=== PATIENT | female | born 1960 | race African-American/Black ===

== ENCOUNTER 2025-05-23 14:08 | Outpatient (AMB) | payer MEDICARE, SELFPAY ==
[2025-05-23 14:23] VITALS: BMI 36.7
--- NOTE | 2025-05-23 14:23 | A.OFFVIS_ITS ---
VS Expanded 05/23/25 14:23 05/23/25 14:25 Height 5 ft 5 in 5 ft 5 in Weight 220 lb 10.923 oz 221 lb BMI 36.7 36.8 Intake Visit Reasons: PRE DM Allergies acetaminophen (From Percocet) Allergy (Intermediate, Verified 05/30/25 14:03) DIZZY oxycodone (From Percocet) Allergy (Intermediate, Verified 05/30/25 14:03) DIZZY Nutrition Presentation Details: Pt presents for MNT for obesity food frequency fruit: 0-2 vegetables: 2-3 x/wk fish: 0-1x/wk dairy : 0-2/d beverages:water /milk /low sugar beverages/juice eating out 0-1/wk physical activity :ADL eoth/smoking--- BAZ-Yenwwkn-Rn.Jeor Equation Height: 5 ft 5 in Weight: 221 lb Resting Metabolic Rate: 1547.59 Calculated Activity Level: Mild Activity Calories Needed to Maintain Weight: 2127.94 Diagnosis Nutrition problem #1: overweight/obesity and food nutri know defi As related to (etiology) #1: diagnosis As evidenced by (sign/symptom) #1: knowledge deficit of diet PFSH Surgical History (Updated 05/30/25 @ 14:07 by Magi Velazquez CMA) Hx of tubal ligation Family History (Updated 05/30/25 @ 14:05 by Magi Velazquez CMA) Mother Hypertension Diabetes Father Hypertension Diabetes Daughter No problems noted. Daughter No problems noted. Social History (Updated 05/30/25 @ 14:05 by Magi Velazquez CMA) Alcohol intake: current Alcohol intake frequency: holidays/special occasions only Patient Tobacco Use Status: Never used Tobacco Assessment & Plan Assessment & Plan (1) Obesity (BMI 30-39.9): Code(s): E66.9 - Obesity, unspecified Category: Medical Plan: Wt: 100 Kg ( 06/10 ) Est kcal needs as per MSJ: 2100 (40% carb, 30% protein/fat) Est fluid needs as per 25-30 ml/d: 3000 Est prot per day as per 1 g/kg bw: 100 Recommend fiber intake : 8-10 g per day and gradually increase to 25-28 g per day for women and 35-38 g for men or as tolerated Recommend sodium intake per day : less than 2300 mg Educated patient on: ( R = reviewed V = verbalizes understanding N/R = needs review N/A = not applicable * Food sources of carbohydrate, adequate serving sizes and its role in various health conditions: R * Differences between complex carbohydrates a simple carbohydrates, role of fibe r in diet: R * Lean protein sources of foods: R * Differences between types of fats and role in diet (mono on saturated fat fatty acids, saturated fatty acids, trans fats): R V N/R * Food sources of sodium in salt and healthy modifications for heart health in kidney health: R V R/V * Vitamins and minerals: R V N/R * Healthy plate method concept: R * Physical activity: Benefits a precaution: R V N/R Patient Instructions: Practice mindful eating Work on reducing sugars and total carb to less than 60 g per meal (3meals/d) and 0-20 g carb as snack (2/day if needed) keep hydrated by having water, herb/fruit flavor infused water Coding Level of Care Code Nutr Indiv Intake (24732) Diagnoses Obesity (BMI 30-39.9) E66.9 Time Spent (min) 30
--- OUTSIDE RECORDS SUMMARY | 2025-05-23 14:34 | XMS_ITS | Data Portability ---
Author Organization [place] - [facility] Address [address] [address] Care Team Providers Care Production Hand Name Role Phone RILEY RODRIGUEZ Primary Care Provider Assessment Encounter Date Assessment Date Assessment LastModified by Organization Details LastModified Time 08/02/2024 08/02/2024 64 year old female presents for routine cerumen removal. Cerumen impaction removed bilaterally. Bilateral TMs are intact with aerated middle ear spaces. Follow up in 2 months for routine debridement, or sooner if needed. [email or web address] Not available 08/02/2024 11:48:19 10/04/2024 10/04/2024 64 year old female presents for routine cerumen removal. Cerumen impaction removed bilaterally. Bilateral TMs are intact with aerated middle ear spaces. Follow up in 2 months for routine debridement, or sooner if needed. 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 She is having recurrent episodes of vertigo. Patient declined Melrose-Hallpike exam today. Referral for vestibular therapy was placed today. Follow-up if symptoms persist or recur. [email or web address] Not available 10/04/2024 12:16:05 12/02/2024 12/02/2024 64yo female with history of BPPV presents for evaluation of the ears. Cerumen impaction removed bilaterally, which patient tolerated well. Otologic exam demonstrated TMs are intact with well-aerated middle ear spaces. Recommend 2-month follow-up for cerumen removal, sooner with issues. [email or web address] Not available 12/02/2024 15:01:45 02/07/2025 02/07/2025 64 year old female presents for routine cerumen removal. Cerumen impaction removed bilaterally. Bilateral TMs are intact with aerated middle ear spaces. Follow up in 2 months for routine debridement, or sooner if needed. [email or web address] Not available 02/07/2025 14:13:13 05/05/2025 05/05/2025 64 year old female presents for routine cerumen removal. Cerumen impaction removed bilaterally. Bilateral TMs are intact with aerated middle ear spaces. Follow up in 2.5 months for routine debridement, or sooner if needed. [email or web address] Not available 05/05/2025 13:27:29 Plan of Treatment Reminders Order Date Submit Date Provider Last Modified By Organization Details Last Modified Time Details Appointments Establish ed 15 2024 01:00P M GEENA JEFFRIES PA-C Not available Not available Not available Establish ed 15 2024 01:00P M GEENA JEFFRIES PA-C Not available Not available Not available Establish ed 15 2024 01:00P M GEENA JEFFRIES PA-C Not available Not available Not available Lab None recorded. Referral vestibula r therapy referral - Urgent referral for bppv. Thank you! 2023 024 [facility] - [address], [place], [address], 10/05/2024 11:20:35 Procedures None recorded. Surgeries None recorded. Imaging None recorded. Medication Orders None recorded. Patient TargetsNo targets recorded. Patient InstructionsNo instructions recorded. Reason for Referral Vestibular Therapy Referral for Benign paroxysmal positional vertigo Urgent referral for bppv. Thank you! Referring Physician: Geena Jeffries, Otolaryngology, Encounter Date: 10/04/2024 Results Created Date Observation Date Name Description Value Unit Range Abnormal Flag Note LastModifiedBy Organization Detail LastModifiedTime 07/07/20 24 02/06/2022 imagi ng/di agnos tic resul t No observ ation record ed. [email or web address] Not Available 02:51:02 07/07/2005/09/2021 imagi ng/di agnos tic resul t No observ ation record ed. [email or web address] Not Available 02:51:15 07/07/20 24 05/09/2021 imagi ng/di agnos tic resul t No observ ation record ed. [email or web address] Not Available 02:51:18 07/07/20 24 09/16/2022 imagi ng/di agnos tic resul t No observ ation record ed. [email or web address] Not Available 02:51:54 07/07/20 24 09/18/2020 imagi ng/di agnos tic resul t No observ ation record ed. [email or web address] Not Available 02:52:03 07/07/20 24 02/06/2022 audio gram No observ ation record ed. [email or web address] Not Available 02:53:45 07/07/20 24 05/09/2021 audio gram No observ ation record ed. [email or web address] Not Available 02:54:05 07/07/20 24 09/18/2020 audio gram No observ ation record ed. [email or web address] Not Available 02:54:52 Result Notes None recorded. 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 Completed 201406/18/2024 Other diseases of respirat ory system: Corporate Investigator al complica tion of tracheos edda; [facility] Treatmen t: establis hed problem (to examiner ): stable or improved Note: Date Diagnose d: 09/30/20 14 1:09 PM (519.02) Other diseases of respirat ory system: Corporate Investigator al complica tion of tracheos edda; CMS Treatmen t: establis hed problem (to examiner ): stable or improved Note: Date Diagnose d: 09/30/20 14 1:09 PM (519.02) ; Start Date : 12/02/19 15 Other diseases of respirat ory system: Corporate Investigator al complica tion of tracheos edda; CMS Risk: minimal risk CMS Treatmen t: establis hed problem (to examiner ): stable or improved Note: Date Diagnose d: 09/30/20 14 1:09 PM (519.02) ; Start Date : 11/02/20 14 Other diseases of respirat ory system: Corporate Investigator al complica tion of tracheos edda; CMS Risk: low risk CMS Treatmen t: establis hed problem (to examiner ): stable or improved Conditi on: improved Note: Date Diagnose d: 09/30/20 14 1:09 PM (519.02) ; Start Date : 10/05/20 14 Other diseases of respirat ory system: Corporate Investigator al complica tion of tracheos edda; CMS Risk: low risk CMS Treatmen t: new problem (to examiner ): no addition al workup planned Conditio n: controll ed Note: Date Diagnose d: 09/30/20 14 1:09 PM (519.02) ; Start Date : 09/30/20 14 Not Available [facility] 4 03:04:19 Pain of right temporom andibula r joint 55980280199 630448 Active 2018 Arthralg ia of right temporom andibula r joint; Note: Date Diagnose d: 9 11:10 AM (M26.621 ) Not Available [facility] 4 03:04:20 Nasal congesti on 48133112 Active 2020 Nasal congesti on; Note: Date Diagnose d: 1 11:05 AM (R09.81) Not Available [facility] 4 03:04:19 Sensorin eural hearing loss of bilatera l ears 654974289 Active 2019 Sensorin eural hearing loss, bilatera l; Note: Date Diagnose d: 0 12:45 PM (H90.3) Not Available [facility] 4 03:04:17 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 ; CMS Treatmen t: establis hed problem (to examiner ): stable or improved Note: Date Diagnose d: 09/30/20 14 1:09 PM (357.0) 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 ; CMS Risk: low risk CMS Treatmen t: new problem (to examiner ): no addition al workup planned Conditio n: controll ed Note: Date Diagnose d: 09/30/20 14 1:09 PM (357.0) ; Start Date : 09/30/20 Not Available [facility] 4 03:04:19 Diffuse otitis externa 41523666 Completed 202006/18/2024 Diffuse otitis externa, right ear; Note: Date Diagnose d: 04/23/2021 4:47 PM (H60.311 ) Not Available [facility] 4 03:04:17 Atypical facial pain 72413746 Active 2020 Atypical facial pain; Note: Date Diagnose d: 04/23/2021 4:47 PM (G50.1) Not Available [facility] 4 03:04:18 Bilatera l tinnitus 26807588340 02 Active 2019 Tinnitus , bilatera l; Note: Date Diagnose d: 0 11:38 AM (H93.13) Not Available [facility] 4 03:04:19 Stridor 93239018 Active 2014 Stridor; Note: Date Diagnose d: 5 3:01 PM (786.1) Strido r; Note: Date Diagnose d: 5 3:01 PM (R06.1) Not Available [facility] 4 03:04:18 Tinnitus of right ear 38587488924 08 Active 2019 Tinnitus , right ear; Note: Date Diagnose d: 0 12:45 PM (H93.11) Not Available [facility] 4 03:04:20 Otalgia of right ear 7512528357 Active 2020 Otalgia, right ear; Note: Date Diagnose d: 04/23/2021 4:47 PM (H92.01) Not Available [facility] 4 03:04:17 Allergic rhinitis 82916812 Active 2020 Other allergic rhinitis ; Note: Date Diagnose d: 1 11:05 AM (J30.89) Not Available [facility] 4 03:04:18 Impacted cerumen of bilatera l ears 14257550067 39591 Active 2021 Impacted cerumen, bilatera l; Note: Date Diagnose d: 2 12:46 PM (H61.23) Not Available [facility] 4 03:04:19 Dizzines s and giddines s 303293670 Active 2020 Dizzines s and giddines s; Note: Date Diagnose d: 1 12:29 PM (R42) Not Available [facility] 4 03:04:18 Benign paroxysm al position al vertigo 862742523 Active 2023 GEENA JEFFRIES PA-C [address] [place] [address],[address] [place], [address] , [place] - [facility] [place] 4 12:14:47 Problem Notes None recorded. Procedures Surgical History Date Name Laterality Status Provider Name and Address Organization Details Recorded Time 5 Cerumen removal without microscope bilat completed GEENA JEFFRIES PA-C [address] [place] [address],[address], [address], [facility] 05/05/2025 13:05:25 5 Cerumen removal without microscope bilat completed GEENA JEFFRIES PA-C [address] [place] [address],[address], [address], [facility] - [facility] [place] 02/07/2025 14:12:57 5 Cerumen removal without microscope bilat completed RAMIREZ PABLO PA-C [address] [place] [address],[address], [address], [place] - [facility] [place] 12/02/2024 15:02:20 4 Cerumen removal without microscope bilat completed GEENA JEFFRIES PA-C 100 [facility],[address], [address], [place] [facility] [place] 10/04/2024 12:16:31 4 Cerumen removal without microscope bilat completed GEENA JEFFRIES PA-C 100 [facility],[address], [address], [place] - [facility] [place] 08/02/2024 11:25:02 4 Cerumen removal without microscope bilat completed GEENA JEFFRIES PA-C 100 [facility],[address], [address], [place] - [facility] [place] 05/31/2024 11:50:39 4 Cerumen removal without microscope bilat completed GEENA JEFFRIES PA-C 100 [facility],[address], [address], [place] - [facility] [place] 04/05/2024 12:16:28 Imaging Results None recorded. Procedure Notes None recorded. Medical Equipment None Reported. Allergies No known drug allergies Medications Name Sig Start Date Stop Date Status Note LastModified by Organization Details LastModified Time losartan 50 mg tablet TAKE 1 TABLET BY MOUTH 1 TIME EACH DAY. active Not Available Not Available No t Available terconazo le 0.4 % vaginal cream INSERT 1 APPLICAT ORFUL VAGINALL Y AT BEDTIME FOR 7 NIGHTS 04/05 completed Not Available Not Available Not Available albuterol sulfate 2.5 mg/3 mL (0.083 %) solution for nebulizat ion PLEASE SEE ATTACHED FOR DETAILED DIRECTIO NS active Not Available Not Available No t Available cetirizin e 10 mg tablet 05/09 completed Medicati on ID: [id number] D uration Value: 30 Brand Name: cetirizi ne Send Method: E-Prescr ibed Sub s Allowed: subs OK Speci al Instruct ion: TAKE 1 TAB BY MOUTH AT BEDTIME* * FEXOFENA DINE WAS INEFFECT JACKELNIE N/C* M edicatio nGeneric Name: cetirizi ne Not Available Not Available Not Available Stool Softener 100 mg capsule 05/09 completed Medicati on ID: [id number] Du ration Value: 30 Brand Name: Stool Softener Send Method: E-Prescr ibed Sub s Allowed: subs OK Speci al Instruct ion: TAKE 1 CAP BY MOUTH 2 TIMES DAILY. M ari Carlsoneneric Name: Stool Softener Not Available Not Available Not Available prednison e 20 mg tablet 04/05 completed Medicati on ID: [id number] B rand Name: predniso ne Send Method: E-Prescr ibed Sub s Allowed: subs OK Medic ationGen ericName : predniso ne Medic ation ID: [id number] B rand Name: predniso ne Send Method: E-Prescr ibed Sub s Allowed: subs OK Medic ationGen ericName : predniso ne Not Available Not Available Not Available sertralin e 100 mg tablet 05/09 completed Medicati on ID: [id number] B rand Name: sertrali ne Send Method: E-Prescr ibed Sub s Allowed: subs OK Medic ationGen ericName : sertrali ne Not Available Not Available Not Available prednison e 5 mg tablet 05/09 completed Medicati on ID: [id number] Du ration Value: 30 Brand Name: predniso ne Send Method: E-Prescr ibed Sub s Allowed: subs OK Speci al Instruct ion: TAKE 1 TABLET BY MOUTH EVERY DAY Medi cationGe nericNam e: predniso ne Not Available Not Available Not Available permethri n 5 % topical cream PLEASE SEE ATTACHED FOR DETAILED DIRECTIO NS 12/02 completed Not Available Not Available Not Available meclizine 12.5 mg tablet TAKE 2 TABLETS BY MOUTH 3 TIMES A DAY FOR 30 DAYS 04/05 completed Not Available Not Available Not Available aspirin 81 mg tablet,de layed release TAKE 1 TABLET BY MOUTH EVERY DAY active Not Available Not Available No t Available amoxicill in 500 mg tablet TAKE 1 TABLET BY MOUTH TWICE A DAY 04/05 completed Not Available Not Available Not Available pantopraz ole 20 mg tablet,de layed release 05/09 completed Medicati on ID: [id number] Du ration Value: 30 Brand Name: pantopra zole Sen d Method: E-Prescr ibed Sub s Allowed: subs OK Speci al Instruct ion: TAKE 1 TAB BY MOUTH DAILY. M ari Vizcarraic Name: pantopra zole Not Available Not Available Not Available alprazola m 0.5 mg tablet 05/09 completed Medicati on ID: [id number] Du ration Value: 10 Brand Name: alprazol am Send Method: E-Prescr ibed Sub s Allowed: subs OK Speci al Instruct ion: TAKE 1 TABLET BY MOUTH 3 TIMES A DAY NEEDED FOR ANXIETY Medicati onGeneri cName: alprazol am Not Available Not Available Not Available hydromorp miguel 2 mg tablet 05/09 completed Medicati on ID: [id number] Du ration Value: 5 Brand Name: hydromor phone Se nd Method: E-Prescr ibed Sub s Allowed: subs OK Speci al Instruct ion: TAKE 1 TABLET BY MOUTH EVERY 6 HOURS NEEDED FOR PAIN Med icationG enericNa me: hydromor phone Not Available Not Available Not Available famotidin e 20 mg tablet 05/09 completed Medicati on ID: [id number] B rand Name: famotidi ne Send Method: E-Prescr ibed Sub s Allowed: subs OK Medic ationGen ericName : famotidi ne Not Available Not Available Not Available triamcino lone acetonide 0.025 % topical cream APPLY 1 G TOPICALL Y 2 TIMES DAILY FOR 7 DAYS. 12/02 completed Not Available Not Available Not Available meclizine 25 mg tablet TAKE 1 TABLET BY MOUTH 3 TIMES DAILY NEEDED active Not Available Not Available No t Available amlodipin e 10 mg tablet TAKE 1 TABLET BY MOUTH 1 TIME EACH DAY. active Not Available Not Available No t Available Gas Relief (simethic one) 80 mg chewable tablet 05/09 completed Medicati on ID: [id number] Du ration Value: 30 Brand Name: Gas Relief (simethi cone) Se nd Method: E-Prescr ibed Sub s Allowed: subs OK Speci al Instruct ion: CHEW 1 TABLET BY MOUTH 3 TIMES A DAY NEEDED FOR FLATULEN CE Medic ationGen ericName : Gas Relief (simethi cone) Not Available Not Available Not Available clotrimaz ole 1 % topical solution 05/31 completed Medicati on ID: [id number] B rand Name: clotrima zole Sen d Method: E-Prescr ibed Sub s Allowed: subs OK Medic ationGen ericName : clotrima zole Med ication ID: [id number] B rand Name: clotrima zole Sen d Method: E-Prescr ibed Sub s Allowed: subs OK Medic ationGen ericName : clotrima zole Not Available Not Available Not Available omeprazol e 20 mg capsule,d elayed release TAKE 1 CAPSULE BY MOUTH EVERY DAY active Not Available Not Available No t Available hydroxyzi ne HCl 25 mg tablet TAKE 1 TABLET BY MOUTH TWICE A DAY NEEDED FOR ITCHING active Not Available Not Available No t Available mometason e 0.1 % topical ointment 05/31 completed Medicati on ID: [id number] B rand Name: mometaso ne Send Method: E-Prescr ibed Sub s Allowed: subs OK Medic ationGen ericName : mometaso ne Medic ation ID: [id number] B rand Name: mometaso ne Send Method: E-Prescr ibed Sub s Allowed: subs OK Medic ationGen ericName : mometaso ne Not Available Not Available Not Available gabapenti n 100 mg capsule 05/09 completed Medicati on ID: [id number] Du ration Value: 30 Brand Name: gabapent in Send Method: E-Prescr ibed Sub s Allowed: subs OK Speci al Instruct ion: TAKE 3 CAPSULES BY MOUTH 3 TIMES A DAY Medi cationGe nericNam e: gabapent in Not Available Not Available Not Available methylpre dnisolone 4 mg tablets in a dose pack TAKE 6 TABLETS ON DAY 1 DIRECTED ON PACKAGE AND DECREASE BY 1 TAB EACH DAY FOR A TOTAL OF 6 DAYS active Not Available Not Available No t Available fluticaso ne propionat e 50 mcg/actua tion nasal spray,libra pension USE 1 SPRAY IN EACH NOSTRIL TWICE A DAY active Not Available Not Available No t Available sertralin e 50 mg tablet TAKE 1 TABLET BY MOUTH EVERY DAY active Not Available Not Available No t Available ipratropi um bromide 21 mcg (0.03 %) nasal spray USE 2 SPRAYS IN EACH NOSTRIL 3 TIMES A DAY active Not Available Not Available No t Available loratadin e 10 mg tablet 05/09 completed Medicati on ID: [id number] D uration Value: 30 Brand Name: naren langston Send Method: E-Prescr ibed Sub s Allowed: subs OK Speci al Instruct ion: TAKE 1 TABLET BY MOUTH EVERY DAY NC BY INS OT Medi cationGe nericJuliano e: naren langston Not Available Not Available Not Available neomycin- polymyxin -hydrocor t 3.5 mg-10,000 unit/mL-1 % ear drops,libra p PLEASE SEE ATTACHED FOR DETAILED DIRECTIO NS 04/05 completed Not Available Not Available Not Available Laxative (bisacody l) 5 mg tablet,de layed release TAKE 2 TABLETS BY MOUTH RIGHT BEFORE BEGINNIN G BOWEL PREP. SEE INSTRUCT IONS PROVIDED BY THE OFFICE active Not Available Not Available No t Available cyclobenz aprine 5 mg tablet TAKE 1 TABLET BY MOUTH AT BEDTIME NEEDED FOR MUSCLE SPASMS. active Not Available Not Available No t Available GaviLyte- G 236 gram-22.7 4 gram-6.74 gram-5.86 gram oral solution PLEASE SEE ATTACHED FOR DETAILED DIRECTIO NS active Not Available Not Available No t Available Breo Ellipta 100 mcg-25 mcg/dose powder for inhalatio n TAKE 1 PUFF BY MOUTH EVERY DAY active Not Available Not Available No t Available Vitals Date Recorded Body height Body mass index (BMI) Body weight Provider Name and Address Organization Details Last Updated DateTime 12/02/2024 165.1 cm 38.3 kg/m2 004768.25 g Mary Alfred [place] [facility] 12/02/2024 14:35:47 Date Recorded Body height Body mass index (BMI) Body weight Provider Name and Address Organization Details Last Updated DateTime 02/07/2025 165.1 cm 38.3 kg/m2 045886.25 g Ani Fontaine [place] [facility] 02/07/2025 13:36:02 Date Recorded Body height Body mass index (BMI) Body weight Provider Name and Address Organization Details Last Updated DateTime 05/05/2025 165.1 cm 38.3 kg/m2 234383.25 g Ani Fontaine [place] - [facility] 05/05/2025 13:09:52 Date Recorded Body height Body mass index (BMI) Body weight Provider Name and Address Organization Details Last Updated DateTime 08/02/2024 165.1 cm 34.9 kg/m2 68486.4 g Ani Fontaine [place] [facility] 08/02/2024 11:36:08 Date Recorded Body height Body mass index (BMI) Body weight Provider Name and Address Organization Details Last Updated DateTime 10/04/2024 165.1 cm 34.9 kg/m2 99599.4 g Ani Fontaine [facility] 10/04/2024 11:48:04 Social History None recorded. Functional Status None recorded. Mental Status None recorded. Family History Nothing Reported. Medical History Condition Response Sleep Disorder Y Hypertension Y Gynecological HistoryNo gynecological history recorded. Obstetrics History GPAL:G 0 P 0 0 0 0 Past Encounters Encounter ID Performer Location Encounter Start Date Encounter Closed Date Diagnosis/Indication Diagnosis SNOMED-CT Code Diagnosis ICD10 Code Diagnosis Note [id number] GEENA JEFFRIES PA-C [facility] [address] [address] 04/05/2024 11:44:48 04/05/2024 12:48:29 Impacted cerumen of bilateral ears [id number] 174212 H61.23 [id number] GEENA JEFFRIES PA-C [facility] [address] [address] 05/31/2024 11:46:14 05/31/2024 12:00:15 Impacted cerumen of bilateral ears 3262162775 021472 H61.23 [id number] GEENA JEFFRIES PA-C [facility] [address] [address] 08/02/2024 11:19:50 08/02/2024 11:48:46 Impacted cerumen of bilateral ears 1804198591 649919 H61.23 [id number] GEENA JEFFRIES PA-C [facility] [address] [address] 10/04/2024 11:41:46 10/04/2024 12:05:47 Impacted cerumen of bilateral ears 8225653225 022937 H61.23 Benign par oxysmal positional vertigo 719175295 H81.10 [id number] RAMIREZ PABLO PA-C [facility] [address] [place] [address] 12/02/2024 14:20:29 12/02/2024 15:04:25 Impacted cerumen of bilateral ears 8978337835 272749 H61.23 [id number] GEENA JEFFRIES PA-C [facility] [address] [place] [address] 02/07/2025 13:25:22 02/07/2025 14:08:18 Impacted cerumen of bilateral ears 9830097532 048232 H61.23 [id number] GEENA JEFFRIES PA-C [facility] [address] [place] [address] 05/05/2025 13:02:58 05/05/2025 13:32:19 Impacted cerumen of bilateral ears 9951627389 198918 H61.23 Health Concerns Section Related Observation LastModified by Organization Detai ls LastModified Time None Recorded Concern Status LastModified by Organization Details LastModified Time None Recorded Advance Directives Directive None Recorded Payers Insurance Date Sequence Insurance Name Policy Number Policy Gomez Covered Member ID Gomez Member ID Guarantor Name 05/05/2025 1 [employer] [id number] Elena Madrigaltenkadi [id number] Elena Rojas 09/23/2024 2 MEDICARE [place]: [employer] Elena Rojas [id number] Elena Fullerdler Crystal 09/23/2024 1 [place] [employer] Elena Keaner Crystal [id number] Elena Rojas Notes Date Note Type Note Provider Name and Address Organization Details Recorded Time 08/02/2024 text/html 64 year old rossy hendrickson presents for routine cerumen removal. No concerns today. ALEJANDRINA ANTONIO MD [address] [place] [address], [address], [facility] - [facility] 08/02/2024 12:28:57 10/04/2024 text/html 64 year old rossy hendrickson presents for routine cerumen removal. Denies otalgia, otorrhea, or changes in her hearing. She reports for the past 2 months, she has been having intermittent episodes of room spinning dizziness lasting a few seconds. Was given Meclizine by her PCP and the ER. History of BPPV treated with vestibular therapy in the past. Symptoms are trigger with movements of her head. OLI JUSTICE MD [address] [facility] [place],[address], [address], [facility] - [facility] 10/04/2024 13:04:00 12/02/2024 text/html 64yo female with history of BPPV presents for evaluation of the ears. Reports right ear feels blocked. Denies otalgia, otorrhea, change in tinnitus, or Qtip use. ARIANNE WELLINGTON MD 100 [facility] [place],[address], [address], [facility] - [facility] 12/03/2024 08:00:44 02/07/2025 text/html 64 year old rossy hendrickson presents for routine cerumen removal. Denies otalgia, otorrhea, or changes in her hearing. AXEL SANCHEZ MD 100 [facility],[place] [address], [place], [address], [facility] - [facility] 02/09/2025 08:21:34 05/05/2025 text/html 64 year old rossy hendrickson presents for routine cerumen removal. Denies otalgia, otorrhea, or changes in her hearing. BERTHA MOYA MD [address] [facility] [place],[facility], [place], [address], [facility] - [facility] 05/06/2025 09:43:06 OBGyn Episode No OBEpisode recorded.
--- OUTSIDE RECORDS SUMMARY | 2025-05-23 14:34 | XMS_ITS | Clinical Summary ---
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 Name Role Phone Derrick Jackson MD Primary Care Provider [phone] Allergies Active Allergy Reactions Criticality Noted Date Comments Atorvastatin Unknown 10/29/2013 poor memory from simvastatin & atrovastatin Heparin Bleeding 07/21/2014 Other Reaction(s): excessive bleeding Influenza Virus Vaccines 07/21/2014 History of Guillain-Feura Bush Syndrome Naproxen Headache 09/20/2015 Other Reaction(s): dizzy feeling Oxycodone-Acetaminophen 08/22/2005 Other Reaction(s): syncope episode Propofol 12/31/2024 Other Reaction(s): severe post op vomitting Medications fluticasone propionate (FLONASE) 50 mcg/actuation nasal sprayIndicatio ns:Other seasonal allergic rhinitis SPRAY 2 SPRAYS BY NASAL ROUTE DAILY. 48 mL 1 09/27/20 24 Active fluticasone furoate-vilant Billy (BREO ELLIPTA) 100-25 mcg/dose inhaler Sig - Route: Inhale 100 mg into the lungs daily. - Inhalation Active albuterol HFA (PROVENTIL HFA;VENTOLIN HFA) 108 (90 Base) MCG/ACT inhaler Sig - Route: Inhale 2 Puffs into the lungs 4 times daily as needed for Cough or Wheezing. - Inhalation Active multivit-min/v it C/herb no.124 (AIRBORNE, ASCORBIC ACID, ORAL) Sig - Route: Take by mouth daily. - Oral Active calcium carbonate/shea min D3 (CALCIUM + D ORAL) Take by mouth daily. Active amLODIPine (NORVASC) 10 mg tablet Take 1 tablet (10 mg total) by mouth 1 (one) time each day. 90 tablet 1 12/31/19 25 Active losartan (COZAAR) 50 mg tablet Take 1 tablet (50 mg total) by mouth 1 (one) time each day. 90 tablet 1 12/31/19 25 Active albuterol 2.5 mg /3 mL (0.083 %) nebulizer solutionIndica tions:Persiste nt asthma without complication, unspecified asthma severity TAKE 3 ML (2.5 MG TOTAL) BY NEBULIZATION EVERY 8 (EIGHT) HOURS IF NEEDED FOR WHEEZING. SIG - ROUTE: TAKE 1 VIAL BY NEBULIZATION EVERY 4 HOURS NEEDED FOR WHEEZING. - NEBULIZATION 75 mL 1 01/03/20 25 Active Breo Ellipta 100-25 mcg/dose inhaler INHALE 1 PUFF INTO THE LUNGS DAILY 180 each 1 02/05/20 25 Active aspirin 81 mg EC tablet TAKE 1 TABLET BY MOUTH EVERY DAY 90 tablet 1 03/21/20 25 Active sertraline (ZOLOFT) 50 mg tablet TAKE 1 TABLET BY MOUTH EVERY DAY 90 tablet 1 03/21/20 25 Active meclizine (ANTIVERT) 25 mg tablet Take 1 tablet (25 mg total) by mouth 3 (three) times a day if needed for dizziness or nausea. 30 tablet 1 03/24/20 25 Active hydrOXYzine HCL (ATARAX) 25 mg tabletIndicati ons:Other seasonal allergic rhinitis TAKE 1 TABLET BY MOUTH TWICE A DAY NEEDED FOR ITCHING 180 tablet 1 04/12/20 25 Active cyclobenzaprin e (FLEXERIL) 5 mg tablet TAKE 1 TABLET BY MOUTH AT BEDTIME NEEDED FOR MUSCLE SPASMS. 30 tablet 05/02/20 25 Active cyclobenzaprin e (FLEXERIL) 5 mg tablet Take 1 tablet (5 mg total) by mouth at bedtime as needed for muscle spasms. 30 tablet 04/04/20 25 025 Discontinued Active Problems Problem Noted Date Diagnosed Date Hypoventilation 12/30/2024 Severe obesity (BMI 35.0-39. 9) with comorbidity (CMS/HCC V24, CMS/HCC V28) 12/30/2024 Disorder 12/30/2024 Overview (12/30/2024): Obstructive sleep apnea mild AHI 12 with nocturnal hypoxia Gastroesophageal reflux disease 10/27/2023 Prediabetes 03/24/2023 History of COVID-19 10/31/2022 Overview (12/30/2024): Home test Disease due to severe acute respiratory syndrome coronavirus 2 (SARS-CoV-2) 04/08/2022 Overview (12/30/2024): Problem added by Discern Expert Vertigo 04/06/2021 Generalized anxiety disorder 03/12/2021 Obesity (BMI 30.0-34.9) 03/12/2021 Obstructive sleep apnea 04/21/2019 Overview (12/30/2024): [facility] Polysomnogram: Date 04/02/2019; Wt 196#; BMI 33; AHI 13, Central apneas 0; Obstructive apneas 8; Mixed apneas 0; hypopneas 60; average oxygen saturation 92% (lowest 82%); with sats <88% for 46.6 minutes of study. ARMD (age-related macular degeneration), bilater al 11/02/2018 Nuclear sclerosis of both eyes 11/02/2018 Asthma 03/17/2017 Overview (12/30/2024): Follows with [facility] pulmonology Normal PFTs December 2016 Hyperparathyroidism (CMS/HCC V24) 03/09/2014 Subacute thyroiditis 03/09/2014 Hyperlipidemia 04/08/2007 Allergic rhinitis 04/03/2007 HTN (hypertension) 08/22/2005 Encounters Date Type Department Care Team Description 04/06/2025 Telephone Internal [facility] [address] [place] [address] Derrick Jackson MD NEW DIAG CODE NEEDED 04/04/2025 3:30 PM EDT Office Visit [facility] - [facility] [address] [place] [phone] Derrick Jackson MD Adult general medical examination (Primary Dx); Screening for deficiency anemia; Screening for hyperlipidemia; Screening for diabetes mellitus; Screening for thyroid disorder; Screening for osteoporosis 03/28/2025 8:32 AM EDT Anesthesia Event [facility] Endoscopy [address] [place] [phone] Tyler Riley DO Chang, Ling, CRNA 03/28/2025 7:55 AM EDT - 03/28/2025 11:59 PM EDT Hospital Encounter [facility] [address] [place] [phone] Shaheen Nur MD Chang, Ling, CRNA Korobkov, Vitaliy, DO Hx of colonic polyps Discharge Disposition: Home or Self Care 03/15/2025 Telephone Gastroenterology - [address] [facility] [address] [phone] [place], [place] 03/07/2025 6:00 PM EDT - 03/07/2025 11:59 PM EDT Hospital Encounter Radiology Department - [address] [phone] Encounter for screening mammogram for breast cancer Discharge Disposition: Home or Self Care from Last 3 Months Immunizations Name Administration Dates Next Due Hepatitis A Adult (Havrix; V aqta) 19yo and older 12/04/2009,05/22/2009 Hepatitis B (Touqbzb-N-Avrpf , Recombivax HB-Adult) 19yo and older 12/04/2009,06/22/2009,05/22/2009 Influenza trivalent, 0.5mL, preservative free (Fluarix; FluLaval; Fluzone) ages 6mo and older (Afluria) 3 years and older 11/06/2012 Influenza trivalent, with pr eservative (Fluzone; Afluria) 6mo and older 08/07/2018 Measles 02/09/2010 Mumps 02/09/2010 PPD Test 02/09/2010,10/31/1996 Pneumococcal polysaccharide 23 valent (Pneumovax 23) 2yo and older 06/29/2019,06/01/2014 Rubella 02/09/2010 Td Tetanus diptheria (Tdvax) 7yo and older 06/24,10/31/1996 Tdap Tetanus diptheria acell ular pertussis (Boostrix; Adacel) 7yo and older 01/25/2013 Varicella live (Varivax) 12mo and older 02/10/20 10 Surgical History Surgery Date Site/Laterality Comments COLONOSCOPY 01/30/2009 PROCEDURE: HISTORICAL COLONOSCOPY; COMMENT: normal; repeat in ten years TUBAL LIGATION PROCEDURE: HISTORICAL TUBAL LIGATION WISDOM TOOTH EXTRACTION PROCEDURE: HISTORICAL WISDOM TEETH EXTRACTION OTHER SURGICAL HISTORY for DVT PROCEDURE: X-RAY FOR PLACEMENT OF VEIN FILTER; COMMENT: Removed 09/20/14 at [facility] OTHER SURGICAL HISTORY trached 06/03/14 PROCEDURE: TRACHEOSTOMY OR LARNGECTOMY; COMMENT: removed 09/29/14 COLONOSCOPY 2020 PROCEDURE: HISTORICAL COLONOSCOPY; COMMENT: rpt 5 years Medical History Medical History Date Comments Allergic rhinitis due to oth er allergen DX:Allergic rhinitis due to other allergen; COMMENT: dust and pollen Allergic rhinitis, cause unspecified 04/03/2007 DX:Allergic rhinitis, cause unspecified Other and unspecified hyperlipidemia 04/08/2007 DX:Other and unspecified hyperlipidemia Essential hypertension, benign 08/22/2005 D X:Essential hypertension, benign Subacute thyroiditis 03/09/2014 DX:Subacute thyroiditis 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 Asthma 03/17/2017 DX:Asthma Gastroesophageal reflux disease 10/27/2023 DX:Gastroesophageal reflux disease ARMD (age-related macular degeneration), bilateral 11/02/2018 Family History Medical History Relation Name Comments No Known Problems Aunt Other: Other Brother x4 1 was killed Thyroid disease Daughter x2 Dementia Father Hypertension Father Prostate cancer Father No Known Problems Maternal Grandfather No Known Problems Maternal Grandmother Diabetes Mother Hypertension Mother Other: heart disease Mother No Known Problems Other No Known Problems Paternal Grandfather Blindness Paternal Grandmother No Known Problems Sister No Known Problems Uncle Breast cancer Neg Hx Cataracts Neg Hx Colon cancer Neg Hx Glaucoma Neg Hx Macular degeneration Neg Hx Ovarian cancer Neg Hx Strabismus Neg Hx Relation Name Status Comments Aunt Brother x4 1 Alive x3, all health y Daughter x2 Alive Father HTN, 84 as of Maternal Grandfather Maternal Grandmother Mother Alive knee arthritis Other Paternal Grandfather Paternal Grandmother Sister Alive healthy Uncle Social History Tobacco Use Types Packs/Day Years Used Date Smoking Tobacco: Never Smokeless Tobacco: Never Tobacco Cessation:Counseling Given: Not Answered Alcohol Use Standard Drinks/Week Comments No 0 (1 standard drink = 0.6 oz pur e alcohol) Interpersonal Safety Answer Date Record ed Physical Abuse 03/28/2025 Verbal Abuse 03/28/2025 Comments No Sex and Gender Information Value Date Recorded Sex Assigned at Female 04/06/2025 12:48 PM EDT Legal Sex Female 4:55 PM EST Gender Identity Female 04/06/2025 12:48 PM EDT Sexual Orientation Straight 04/06/2025 12 :48 PM EDT Obstetrics History Para Term AB IAB SAB Ectopic Multiple Livin g Live Births 2 2 2 2 Date Outcome GA Total Labor Labor/2nd/3rd Weight Sex Type Anes PTL Yara A1 A5 Name Clin Term Term Last Filed Vital Signs Vital Sign Reading Time Taken Comments Blood Pressure 122/70 04/04/2025 3:42 PM EDT Pulse 74 04/04/2025 3:42 PM EDT Temperature 36.2 C (97.2 F) 03/28/2025 8:20 AM EDT Respiratory Rate 18 03/28/2025 9:09 AM EDT Oxygen Saturation 100% 03/28/2025 9:09 AM EDT Inhaled Oxygen Concentration - - Weight 97.5 kg (215 lb) 04/04/2025 3:42 PM EDT Height 165.1 cm (5' 5 ) 04/04/2025 3:42 PM EDT Body Mass Index 35.78 04/04/2025 3:42 PM EDT Plan of Treatment Upcoming Encounters Date Type Department Care Team (Late st Contact Info) Description 10/10/2025 1:00 PM EST Office Visit Internal Medicine - [address] [phone] Derrick Jackson MD [address] [place] [phone] 11/21/2025 2:00 PM EST Appointment [facility] Density [address] [place] [phone] 03/13/2026 4:50 PM EDT Appointment Radiology Department - [address] [phone] Health Maintenance Due Date Last Done Comments Zoster Vaccines (1 of 2) 04/06/2010 02/09/2010 RSV Immunization Adult Patients (1 - Risk 60-74 years 1-dose series) 2018 Pneumococcal Vaccine: 50+ Years (2 of 2 - PCV) 06/29/2020 06/29/2019, 06/01/2014 Social Influencers of Health Screening 10/26/2022 DTaP,Tdap,and Td Vaccines (4 - Td or Tdap) 01/25/2023 01/25/2013, 06/24/2006, 10/31/1996 COVID-19 Vaccine ( - season) 2024 11/03/2021, 04/04/2021, 03/14/2021 Depression Screening 02/15/2025 02/16/2024 Influenza Vaccine (#1) 2025 08/07/2018, 2011 Falls Risk Assessment 03/28/2026 03/28/2025 Hypertension/CHF/CAD Annual BMP Blood Test 04/04/2026 04/04/2025, 12/31/2024, 03/23/2024, Additional history exists Breast Cancer Screening 03/07/2027 03/07/20, 02/23/2024, 02/15/2023, Additional history exists Colorectal Cancer Screening: Colonoscopy 03/28/2030 03/28/2025, 01/12/2020 Cholesterol Screening (Lipid Panel) 04/04/2030 04/04/2025, 12/31/2024, 01/12/2024 Osteoporosis Screening (Bone Density Screening) 11/03/2033 11/03/2023 Hepatitis A Vaccines Aged Out 12/04/2009, 05/22/20 09 No longer eligible based on patient's age to complete this topic Hepatitis B Vaccines Completed 12/04/2009, 06/22/2009, 05/22/2009 Varicella Vaccines Aged Out 02/09/2010 No longer eligible based on patient's age to complete this topic Hepatitis C Screening Completed 01/12/2024 HIB Vaccines Aged Out No longer eligi ble based on patient's age to complete this topic HPV Vaccines Aged Out No longer eligi ble based on patient's age to complete this topic IPV Vaccines Aged Out No longer eligi ble based on patient's age to complete this topic MMR Vaccines Aged Out No longer eligi ble based on patient's age to complete this topic Meningococcal ACWY Vaccine Aged Out N o longer eligible based on patient's age to complete this topic Meningococcal B Vaccine Aged Out No l onger eligible based on patient's age to complete this topic RSV Immunization Patients Under 20 months Aged Out No longer eligible based on patient's age to complete this topic Procedures Procedure Name Priority Date/Time Associated Diagnosis Comments COMPLETE BLOOD COUNT Routine 04/04/2025 4:22 PM EDT Screening for deficiency anemia COMPREHENSIVE METABOLIC PANEL Routine 04/04/2025 4:22 PM EDT Screening for diabetes mellitus LIPID PANEL WITH REFLEX TO DIRECT LDL Routine 04/04/2025 4:22 PM EDT Screening for hyperlipidemia THYROID STIMULATING HORMONE WITH REFLEX TO FREE T4 AND FREE T3 Routine 04/04/2025 4:22 PM EDT Screening for thyroid disorder COLONOSCOPY Routine 03/28/2025 8:48 AM EDT Hx of colonic polyps MG MAMMO DIGITAL SCREENING W KWAKU BILAT Routine 03/07/2025 6:14 PM EDT Encounter for screening mammogram for breast cancer DEPRESSION SCREENING Routine 02/16/2024 HEPATITIS C SCREENING Routine 01/12/2024 DXA BONE DENSITY STUDY 1+ SITS AXIAL SKEL Routine 11/03/2023 1:52 PM EST Hyperparathyroidism, unspecified (CMS/HCC V24) from Last 3 Months or Most Recently Relevant to Health Maintenance Results * Thyroid stimulating hormone with reflex to free t4 and free t3 (04/04/2025 4:22 PM EDT) TSH 1.18 0.40 - 4.00 mcIU/mL LAB CHEMISTRY METHOD 04/04/2025 7:44 PM EDT [facility] Blood Venous blood specimen / Unknown Venipuncture / Unknown 04/04/2025 4:22 PM EDT 04/04/2025 4:26 PM EDT us Derrick Jackson MD LAB BLOOD ORDERABLES Final Res ult Performing Organization Address City/[facility]/ZIP Co de Phone Number [facility] [address] [place] [address], [place] [phone] * (ABNORMAL) Lipid panel with reflex to direct LDL (04/04/2025 4:22 PM EDT) Cholesterol 220(H) 0 - 200 mg/dL LAB CHEMISTRY METHOD 04/04/2025 7:13 PM EDT [facility] Triglycerides 209(H) 0 - 150 mg/dL LAB CHEMISTRY METHOD 04/04/2025 7:13 PM EDT [facility] HDL 51 >=40 mg/dL LAB CHEMISTRY METHOD 04/04/2025 7:13 PM EDT [facility] LDL Calculated 127(H) 0 - 100 mg/dL LAB CHEMISTRY METHOD 04/04/2025 7:13 PM EDT [facility] VLDL Cholesterol Romeo 41.8 mg/dL LAB CHEMISTRY METHOD 04/04/2025 7:13 PM EDT [facility] Non HDL Chol. (LDL+VLDL) 169(H) <145 mg/dL LAB CHEMISTRY METHOD 04/04/2025 7:13 PM EDT [facility] Chol/HDL Ratio 4.3 0.0 - 4.4 LAB CHEMISTRY METHOD 04/04/2025 7:13 PM EDT [facility] Blood Venous blood specimen / Unknown Venipuncture / Unknown 04/04/2025 4:22 PM EDT 04/04/2025 4:26 PM EDT us Derrick Jackson MD LAB BLOOD ORDERABLES Final Res ult [facility] [address] [place] [address], * (ABNORMAL) Complete blood count (04/04/2025 4:22 PM EDT) [facility] WBC 7.4 4.8 - 10.8 K/mcL LAB HEMETOLOGY METHOD 04/04/2025 6:23 PM EDT [facility] RBC 5.20(H) 3.80 - 4.80 M/mcL LAB HEMETOLOGY METHOD 04/04/2025 6:23 PM EDT [facility] Hemoglobin 15.0 11.5 - 16.0 g/dL LAB HEMETOLOGY METHOD 04/04/2025 6:23 PM EDT [facility] Hematocrit 45.4 35.0 - 47.0 % LAB HEMETOLOGY METHOD 04/04/2025 6:23 PM EDT [facility] MCV 87.5 79.0 - 98.0 FL LAB HEMETOLOGY METHOD 04/04/2025 6:23 PM EDT [facility] MCH 28.9 27.0 - 32.0 pcg LAB HEMETOLOGY METHOD 04/04/2025 6:23 PM EDT [facility] MCHC 33.0 32.0 - 37.0 g/dL LAB HEMETOLOGY METHOD 04/04/2025 6:23 PM EDT [facility] RDW 14.1 11.0 - 15.0 % LAB HEMETOLOGY METHOD 04/04/2025 6:23 PM EDT [facility] Platelets 279 130 - 400 K/mcL LAB HEMETOLOGY METHOD 04/04/2025 6:23 PM EDT [facility] MPV 10.0 7.0 - 11.0 FL LAB HEMETOLOGY METHOD 04/04/2025 6:23 PM EDT [facility] NRBC 0.0 <1.0 % LAB HEMETOLOGY METHOD 04/04/2025 6:23 PM EDT [facility] NRBC Absolute 0.00 <0.10 K/mcL LAB HEMETOLOGY METHOD 04/04/2025 6:23 PM T [facility] Blood Venous blood specimen / Unknown Venipuncture / Unknown 04/04/2025 4:22 PM EDT 04/04/2025 4:26 PM EDT us Derrick Jackson MD LAB BLOOD ORDERABLES Final Res ult [facility] [address] [place] [address], [place] [phone] * Comprehensive metabolic panel (04/04/2025 4:22 PM EDT) Sodium 143 133 - 145 mmol/L LAB CHEMISTRY METHOD 04/04/2025 7:13 PM [facility] Potassium 3.9 3.5 - 5.5 mmol/L LAB CHEMISTRY METHOD 04/04/2025 7:13 PM [facility] Chloride 110 96 - 110 mmol/L LAB CHEMISTRY METHOD 04/04/2025 7:13 PM [facility] CO2 25 21 - 32 mmol/L LAB CHEMISTRY METHOD 04/04/2025 7:13 PM [facility] Anion Gap 8 3 - 11 LAB CHEMISTRY METHOD 04/04/2025 7:13 PM [facility] Glucose 83 70 - 100 mg/dL LAB CHEMISTRY METHOD 04/04/2025 7:13 PM [facility] BUN 11 5 - 25 mg/dL LAB CHEMISTRY METHOD 04/04/2025 7:13 PM [facility] Creatinine 0.71 0.50 - 1.10 mg/dL LAB CHEMISTRY METHOD 04/04/2025 7:13 PM [facility] eGFR 94 >=60 mL/min/1. 73m2 LAB CHEMISTRY METHOD 04/04/2025 7:13 PM EDT [facility] Comment:Calculation based on the Chronic Kidney Disease Epidemiology Collaboration (CKD-EPI) equation refit without adjustment for race. BUN/Creatinine Ratio 15.5 LAB CHEMISTRY METHOD 04/04/2025 7:13 PM EDT [facility] Calcium 10.5 8.5 - 10.5 mg/dL LAB CHEMISTRY METHOD 04/04/2025 7:13 PM EDT [facility] AST (SGOT) 19 10 - 42 unit/L LAB CHEMISTRY METHOD 04/04/2025 7:13 PM [facility] ALT (SGPT) 31 10 - 60 unit/L LAB CHEMISTRY METHOD 04/04/2025 7:13 PM [facility] Alkaline Phosphatase 113 42 - 121 unit/L LAB CHEMISTRY METHOD 04/04/2025 7:13 PM [facility] Total Protein 7.4 6.0 - 8.0 g/dL LAB CHEMISTRY METHOD 04/04/2025 7:13 PM [facility] Albumin 3.5 3.2 - 5.0 g/dL LAB CHEMISTRY METHOD 04/04/2025 7:13 PM [facility] Total Bilirubin 0.3 0.0 - 1.4 mg/dL LAB CHEMISTRY METHOD 04/04/2025 7:13 PM T [facility] Blood Venous blood specimen / Unknown Venipuncture / Unknown 04/04/2025 4:22 PM EDT 04/04/2025 4:26 PM EDT us Derrick Jackson MD LAB BLOOD ORDERABLES Final Res ult [facility] [address] [place] [address], * COLONOSCOPY Anesthesia - MAC; [facility] ENDOSCOPY (03/28/2025 8:48 AM EDT) Anatomical Region Laterality Modality Endoscopy 03/28/2025 8:28 AM EDT Impressions 03/28/2025 8:49 AM EDT - The entire examined colon is normal on direct and retroflexion views. - No specimens collected. Recommendation: - Repeat colonoscopy in 5 years for surveillance. Narrative 03/28/2025 8:49 AM EDT [facility] Patient Name: Gissell Rojas Procedure Date: 03/28/2025 8:28 AM Date of : 1960 Age: 64 Room: ROOM 15 Gender: Female Note Status: Finalized Attending MD: Shaheen Nur MD, Procedure Date No Time: 03/28/2025 Procedure: Colonoscopy Indications: High risk colon cancer surveillance: Personal history of colonic polyps Providers: Shaheen Nur MD Referring MD: Yana Melendez MD Medicines: Propofol per Anesthesia Complications: No immediate complications. Estimated Blood Loss: Estimated blood loss: none. Procedure: Pre-Anesthesia Assessment: - ASA Grade Assessment: III - A patient with severe systemic disease. After I obtained informed consent, the scope was passed under direct vision. Throughout the procedure, the patient's blood pressure, pulse, and oxygen saturations were monitored continuously.The Olympus Colonoscope was introduced through the anus and advanced to the cecum, identified by appendiceal orifice and ileocecal valve. The colonoscopy was performed without difficulty. The patient tolerated the procedure well. The quality of the bowel preparation was adequate. Findings: The perianal and digital rectal examinations were normal. The entire examined colon appeared normal on direct and retroflexion views. Procedure Code(s): --- Professional --- 86140, Colonoscopy, flexible; diagnostic, including collection of specimen(s) by brushing or washing, when performed (separate procedure) Diagnosis Code(s): --- Professional --- Z86.010, Personal history of colonic polyps CPT copyright 2020 [employer]. All rights reserved. The codes documented in this report are preliminary and upon certified court/medical interpreter review may be revised to meet current compliance requirements. Shaheen Nur MD 03/28/2025 8:49:17 AM This report has been signed electronically.Shaheen Nur MD Number of Addenda: 0 Note Initiated On: 03/28/2025 8:28 AM Scope In: Scope Out: Endoscopy Department at [facility] - [address] [place] [phone] Procedure Note Shaheen Nur MD - 03/28/2025 [facility] GI Patient Name: Gissell Rojas Procedure Date: 03/28/2025 8:28 AM Date of : 1960 Age: 64 Room: ROOM 15 Gender: Female Note Status: Finalized Attending MD: Shaheen Nur MD, Procedure Date No Time: 03/28/2025 Procedure: Colonoscopy Indications: High risk colon cancer surveillance: Personalhistory of colonic polyps Providers: Shaheen Nur MD Referring MD: Yana Melendez MD Medicines: Propofol per Anesthesia Complications: No immediate complications. Estimated Blood Loss: Estimated blood loss: none. Procedure: Pre-Anesthesia Assessment: - ASA Grade Assessment: III - A patient with severe systemic disease. After I obtained informed consent, the scope was passed under direct vision. Throughout theprocedure, the patient's blood pressure, pulse, and oxygen saturations were monitored continuously.The Olympus Colonoscope was introduced through the anus and advanced to the cecum, identified by appendiceal orifice and ileocecal valve. The colonoscopy was performed without difficulty. The patient tolerated the procedure well. The quality of the bowel preparation was adequate. Findings: The perianal and digital rectal examinations were normal. The entire examined colon appeared normal on direct and retroflexion views. Procedure Code(s): --- Professional --- 22753, Colonoscopy, flexible; diagnostic, including collection of specimen(s) by brushing or washing,when performed (separate procedure) Diagnosis Code(s): --- Professional --- Z86.010, Personal history of colonic polyps CPT copyright 2020 [employer]. All rights reserved. The codes documented in this report are preliminary and upon certified court/medical interpreter reviewmay be revised to meet current compliance requirements. Shaheen Nur MD 03/28/2025 8:49:17 AM This report has been signed electronically.Shaheen Nur MD Number of Addenda: 0 Note Initiated On: 03/28/2025 8:28 AM Scope In: Scope Out: Endoscopy Department at [facility] - [address] [place] [phone] IMPRESSION: - The entire examined colon is normal on direct and retroflexion views. - No specimens collected. Recommendation: - Repeat colonoscopy in 5 years for surveillance. Yana Melendez MD GI~PROCEDURE ORDERABLES Fin al Result * MG Mammo Digital Screening w Kwaku bilat (03/07/2025 6:14 PM EDT) Anatomical Region Laterality Modality Breast Bilateral Mammography 03/08/2025 7:24 AM EDT Impressions 03/08/2025 7:33 AM EDT BILATERAL BREASTS: Benign, no evidence of malignancy. Normal interval follow-up is recommended in 12 months. BREAST DENSITY: C - The breasts are heterogeneously dense which may obscure small masses. BI-RADS CATEGORY: 2 - BENIGN RECOMMENDATION: Screening bilateral mammogram is recommended in 1 year. Mammo Location: [facility], [address] [place] [address], [id number], . -------- FINAL REPORT -------- Dictated By: Micheline Mcintyre Dictated Date: 03/08/2025 07:24 ET Assigned Physician: Micheline Mcintyre Reviewed and Electronically Signed By: Micheline Mcintyre Signed Date: 03/08/2025 07:33 ET Workstation ID: [id number] Transcribed By: Self Edit Transcribed Date: 03/08/2025 07:24 ET Narrative 03/08/2025 7:33 AM EDT STUDY: Bilateral screening mammography with tomosynthesis and CAD TECHNIQUE: Bilateral full-field digital screening mammography is obtained and read in conjunction with computer-aided detection. Tomosynthesis as well as 2-D C view imaging were obtained. COMPARISON: Comparison made to multiple prior, most recent February 23, 2024, and most remote May 23, 2015. RIGHT BREAST: No significant masses, suspicious calcifications or other abnormalities are seen. LEFT BREAST: Focal asymmetry in the lower inner quadrant posterior depth has been stable since 2014. No significant masses, suspicious calcifications or other abnormalities are seen. Procedure Note Micheline Mcintyre MD - 03/08/2025 STUDY: Bilateral screening mammography with tomosynthesis and CAD TECHNIQUE: Bilateral full-field digital screening mammography is obtainedand read in conjunction with computer-aided detection. Tomosynthesis aswell as 2-D C view imaging were obtained. COMPARISON: Comparison made to multiple prior, most recent February 23, 2024,and most remote May 23, 2015. RIGHT BREAST: No significant masses, suspicious calcifications or otherabnormalities are seen. LEFT BREAST: Focal asymmetry in the lower inner quadrant posterior depthhas been stable since 2014. No significant masses, suspiciouscalcifications or other abnormalities are seen. IMPRESSION: BILATERAL BREASTS: Benign, no evidence of malignancy. Normal intervalfollow-up is recommended in 12 months. BREAST DENSITY: C - The breasts are heterogeneously dense which mayobscure small masses. BI-RADS CATEGORY: 2 - BENIGN RECOMMENDATION: Screening bilateral mammogram is recommended in 1 year. Mammo Location: [facility], [address] [place] [id number], [id number], . -------- FINAL REPORT -------- Dictated By: Micheline Mcintyre Dictated Date: 03/08/2025 07:24 ET Assigned Physician: Micheline Mcintyre Reviewed and Electronically Signed By: Micheline Mcintyre Signed Date: 03/08/2025 07:33 ET Workstation ID: [id number] Transcribed By: Self Edit Transcribed Date: 03/08/2025 07:24 ET us Derrick Jackson MD IMG BI PROCEDURES Final Result * Depression Screening (02/16/2024) Depression Screening Abstracted us Historical Provider HEALTH MAINTENANCE Final Result * Hepatitis C Screening (01/12/2024) Hepatitis C Screening negative Historical Provider HEALTH MAINTENANCE Final Result * DXA BONE DENSITY STUDY 1+ SITS AXIAL SKEL (11/03/2023 1:52 PM EST) Anatomical Region Laterality Modality Bone Densitometr y 08/25/2023 11:4 1 AM EDT Narrative 11/03/2023 2:54 PM EST STUDY: DUAL ENERGY X-RAY ABSORPTIOMETRY / DXA REASON FOR EXAM: Female, 63 years old menopausal/postmenopausal disorder TECHNIQUE: Bone Mineral Density (BMD) measurements of the lumbar spine, left hip and left forearm were obtained using [employer] W (S/N [id number]). COMPARISON: None FINDINGS: L1-L4 BMD: 0.992 g/cm2 L1-L4 T score: -0.5. This corresponds to Normal bone density. Left 1/3 radius BMD: 0.630 g/cm2 Left 1/3 radius T score: -1.1. This corresponds to osteopenia. Left femoral neck BMD: 0.741 g/cm2 Left femoral neck T score: -1.0. This corresponds to Normal bone density. Left total hip BMD: 0.954 g/cm2 Left total hip T score: 0.1. This corresponds to Normal bone density. IMPRESSION: IMPRESSION: Osteopenia Reference Information: The T-score is the number of standard deviations above or below the standard which is normal for young adults at their peak bone mineral density. The World Health Organization (WHO) interprets the T-scores as follows: At or above -1 SD Normal bone density Between -1 and -2.5 SD Osteopenia At or below -2.5 SD Osteoporosis Procedure Note Micheline Mcintyre MD - 12/23/2023 STUDY: DUAL ENERGY X-RAY ABSORPTIOMETRY / DXA REASON FOR EXAM: Female, 63 years old menopausal/postmenopausaldisorder TECHNIQUE: Bone Mineral Density (BMD) measurements of the lumbar spine,left hip and left forearm were obtained using [employer] W (S/N [id number]). COMPARISON: None FINDINGS: L1-L4 BMD: 0.992 g/cm2 L1-L4 T score: -0.5. This corresponds to Normal bone density. Left 1/3 radius BMD: 0.630 g/cm2 Left 1/3 radius T score: -1.1. This corresponds to osteopenia. Left femoral neck BMD: 0.741 g/cm2 Left femoral neck T score: -1.0. This corresponds to Normal bonedensity. Left total hip BMD: 0.954 g/cm2 Left total hip T score: 0.1. This corresponds to Normal bone density. IMPRESSION: IMPRESSION: Osteopenia Reference Information: The T-score is the number of standard deviations above or below thestandard which is normal for young adults at their peak bone mineral density. The World HealthOrganization (WHO) interprets the T-scores as follows: At or above -1 SD Normal bone density Between -1 and -2.5 SD Osteopenia At or below -2.5 SD Osteoporosis [facility] DXA PROCEDURES Final Result from Last 3 Months or Most Recently Relevant to Health Maintenance Insurance [employer] MEDICARE Advance Directives Documents on File Type Date Recorded Patient Admissions Advisor Expl anation Health Care Decision (hx) 01/01/2019 AD DENNY DIRECTIVE Health Care Decision (hx) 01/01/2019 AD DENNY DIRECTIVE Health Care Decision (hx) 01/01/2019 AD DENNY DIRECTIVE Health Care Decision (hx) 01/01/2019 AD DENNY DIRECTIVE Health Care Decision (hx) 01/01/2019 AD DENNY DIRECTIVE Health Care Decision (hx) 01/01/2019 AD DENNY DIRECTIVE Care Teams [employer] Relationship Specialty Start Date End Date Derrick Jackson MD [address] [place] [id number] PCP - General Internal Medicine 07/26/20
[2025-05-31 12:25] VITALS: BMI 36.8
== END 2025-05-23 15:24 | disposition home or self-care (01) ==
PROVIDERS: Visit Provider Dietitian, Registered
DX: E66.9 Obesity, unspecified (principal)

== ENCOUNTER → 2025-05-23 14:08 | Outpatient (BNVA) | payer OTHER, SELFPAY | PROVIDERS: Visit Provider Dietitian, Registered | DX: E66.9 Obesity, unspecified (principal); R73.03 Prediabetes; Z68.36 Body mass index [BMI] 36.0-36.9, adult; Z71.3 Dietary counseling and surveillance | CPT/HCPCS: 97802 ==